=== PATIENT | male | born 1990 | race Caucasian/White ===

== ENCOUNTER → 2020-09-07 06:53 | Outpatient (CLI) | payer OTHER | END | disposition home or self-care (01) | LOC: LAB 06:53 | DX: Z03.818 Encounter for observation for suspected exposure to other biological agents ruled out (principal) ==

== ENCOUNTER 2020-09-14 07:16 | Outpatient (CLI) | payer OTHER | END 2020-09-14 07:17 | disposition home or self-care (01) | LOC: LAB 07:16 | DX: Z03.818 Encounter for observation for suspected exposure to other biological agents ruled out (principal) ==

== ENCOUNTER 2021-06-07 13:07 | Outpatient (CLI) | payer OTHER | END 2021-06-07 15:00 | disposition home or self-care (01) | LOC: LAB 13:07 | PROVIDERS: ATTEND Emergency Medicine Pediatric Emergency Medicine | DX: Z03.818 Encounter for observation for suspected exposure to other biological agents ruled out (principal) ==

== ENCOUNTER → 2021-06-09 16:03 | Outpatient (CLI) | payer OTHER | END | disposition home or self-care (01) | LOC: LAB 10:17 | PROVIDERS: ATTEND General Practice | DX: Z20.828 Contact with and (suspected) exposure to other viral communicable diseases (principal) ==